=== PATIENT | male | born 1975 | race Caucasian/White ===

== ENCOUNTER → 2016-12-04 14:11 | Outpatient (CLI) | payer BC ==
[2016-12-04 18:49] LABS: BASOPHILS 0.2 % (0-2); HEMATOCRIT 44.9 % (42.0-54.0); HEMOGLOBIN 15.3 g/dL (13.5-17.5); LYMPHOCYTES 19.8 % (15-50); MCH 31.2 pg (26.0-34.0); MCHC 34.1 g/dL (31.0-37.0); MCV 91.4 fL (80.0-100.0); MEAN PLATELET VOLUME 11.1 fL (7.4-10.4); MONOCYTES 6.8 % (2-11); NEUTROPHILS 67.2 % (40-80); PLATELET COUNT 167 10x3/uL (130-400); RBC 4.91 10x6/uL (4.20-6.10); RDW 13.5 % (11.5-14.5); WBC 4.9 10x3/uL (4.8-10.8)
[2016-12-04 20:04] LABS: ERYTHROCYTE SEDIMENTATION RATE 3 mm/hr (0-15)
== END | disposition home or self-care (01) ==
LOC: D.LABREF 14:11
PROVIDERS: Internal Medicine Pulmonary Disease
DX: J18.9 Pneumonia, unspecified organism (principal)